=== PATIENT | female | born 1995 | race Caucasian/White ===

== ENCOUNTER 2017-02-02 15:44 | Emergency (ER) | payer OTHER ==
[~2017-02-02 15:44] MED LIST: PREN1CAP7 PO
--- NOTE | 2017-02-02 16:14 | PD ---
HPI Chief Complaint Lost Mucus Plug Date Seen: Feb 02, 2017 Travel History International Travel<30 Days: No Contact w/Intl Traveler<30Days: No History of Present Illness HPI Mrs. Matthews is a 21 y/o at 40/3 present to the [facility] with constant contractions and lost mucus plug. She states that she was checked at her [facility] appointment on Sunday and has had intermittent contractions since then. Today she states the contractions have been constant. She also states that earlier in the day she lost her mucus plug. She endorses good movement and lower ABD pressure. She denies any discharge, vaginal bleeding, or loss of fluid. Otherwise she has no complaints, denies a complete ROS, and states her has been uncomplicated thus far. Weeks Gestation: 40 Para: 0 : 1 Last Menstrual Period: Feb 02, 2017 History Past Medical History Narrative Medical Asthma - last used inhaler approximately 3 weeks ago, only uses rescue inhaler Medical History: Denies Significant Hx Obstetric History Obstetric History Past Surgical History Surgical History: No Previous Surgery Family History Family History: Negative Social History Alcohol Use: No Tobacco Use: No Substance Abuse: No Allergies-Medications (Allergen,Severity, Reaction): Uncoded Allergies: all cillins (Allergy, Severe, Anaphylaxis, 07/25/16) Home Meds Active Scripts W/O Vit A W/ Fe Fumar (Citranatal [place]) 27-1-260 Mg Cap, 1 CAP PO DAILY for Nutritional Supplement, #30 CAP 11 Refills Prov:Cheyenne Maxwell 10/18/16 W/O Vit A W/ Fe Fumar (Citranatal [place]) 27-1-260 Mg Cap Prov:Cheyenne MaxwellP 07/25/16 Review of Systems Except as stated in HPI: all other systems reviewed are Neg Physical Exam Narrative GENERAL: Well-nourished, well-developed patient. SKIN: Warm and dry. HEAD: Normocephalic and atraumatic. EYES: No scleral icterus. No injection or drainage. ENT: No nasal drainage noted. Mucous membranes pink. Airway patent. NECK: Supple, trachea midline. No JVD. CARDIOVASCULAR: Regular rate and rhythm without murmurs, gallops, or rubs. RESPIRATORY: Breath sounds equal bilaterally. No accessory muscle use. ABDOMEN/GI: Abdomen soft, non-tender, bowel sounds present, no rebound, no guarding Gravid to 40 weeks GENITOURINARY: External Genitalia: intact and normal in appearance Cervix: Posterior Dilatation: 1cm Effacement: 50% Station: -3 Membranes: Intact Uterine Contractions: Q7min FHT's: Category: 1 Baseline: 150s Reactive: Positive Variability: Moderate Decels: None EXTREMITIES: No cyanosis or edema. BACK: Nontender without obvious deformity. No CVA tenderness. NEUROLOGICAL: Awake and alert. Motor and sensory grossly within normal limits. Five out of 5 muscle strength in all muscle groups. Normal speech. Data Data Vital Signs Reviewed: Yes Group B Strep: Negative MDM Medical Record Reviewed: Yes Plan Mrs. Matthews is a 21 y/o at 40/3 present to the [facility] with constant contractions and lost mucus plug 1. IUP at 40 weeks -Continue routine antepartum care -Continue vitamin -Encourage oral hydration -FHT category 1, reassuring 2. Contractions -Patient manohar every 7 minutes -Cervical exam not consistent with labor -Pain medication offered, however patient declined Discharge: Patient to be discharged home in stable condition. Patient is scheduled for induction on Sunday. Labor precautions discussed. Patient agreeable to medical plan and all questions answered. SDW: Dr. Forman Diagnosis Diagnosis: Primary Impression: 40 weeks gestation of Additional Impression: Pelvic pain affecting Disposition: 01 DISCHARGE HOME Condition: Stable Patient Instructions: General Instructions, Having Your Baby: The Labor Process (GEN) Beni Leonard MD R2 Feb 02, 2017 16:14
== END 2017-02-02 17:13 | disposition home or self-care (01) ==
LOC: HOBED 15:44
DX: O26.893 Other specified pregnancy related conditions, third trimester (principal); R10.2 Pelvic and perineal pain; Z3A.40 40 weeks gestation of pregnancy
CPT/HCPCS: 59025

== ENCOUNTER 2017-02-06 10:38 | Inpatient (IN) | payer OTHER ==
[2017-02-06] VITALS (33 sets, daily range): BP systolic 112–151; BP diastolic 60–100; PULSE 69–122; RESP 18; TEMP 98.6
[~2017-02-06] VITALS: Ht 167.6 cm; Wt 104.0 kg
[2017-02-06] MEDS ORDERED: LACTATED RINGER'S 1000 ML INJ 1,000 ML IV PRN (11:46)
[2017-02-06] MEDS ORDERED: LACTATED RINGER'S 1000 ML INJ 1,000 ML IV SCH (11:46)
[2017-02-06] MEDS ORDERED: CITRIC ACID-SODIUM CITRATE LIQ 30 ML UDC PO SCH (12:00)
[2017-02-06] MEDS ORDERED: LIDOCAINE HCL 1% 50 ML VIAL I-DERMAL PRN (12:00)
[2017-02-06] MEDS ORDERED: SODIUM CHLORID 0.9% 500 ML INJ 500 ML IV PRN (12:00)
[2017-02-06] MEDS ORDERED: MINERAL OIL 10 ML VIAL TOPICAL PRN (12:00)
[2017-02-06] MEDS ORDERED: OXYTOCIN 30 UNITS-500ML PREMIX 500 ML IV SCH (12:00)
[2017-02-06] MEDS ORDERED: OXYTOCIN 30 UNITS-500ML PREMIX 500 ML IV ONE (12:00)
[2017-02-06] MEDS ORDERED: LIDOCAINE HCL 1% 50 ML VIAL INFIL PRN (12:00)
[2017-02-06] MEDS ORDERED: SODIUM CHLOR 0.9% 1000 ML INJ 1,000 ML IV PRN (12:06)
--- NOTE | 2017-02-06 12:08 | PD ---
HPI Chief Complaint induction of labor (Patrica Sen MD R1) Travel History International Travel<30 Days: No Contact w/Intl Traveler<30Days: No (Patrica Sen MD R1) History of Present Illness HPI Patient is a 21y/o @41 wks who presents for induction of labor. States she was referred by her doctor, who did not want her to deliver after this week, especially because of large fetus (estimated size 9lb 7oz). Endorses movement and contractions; denies vaginal bleeding or leakage of fluid. No abnormal labs or antepartum course. Denies changes in urination, vision disturbances, abdominal pain, or lower extremity swelling. (Patrica Sen MD R1) History Past Medical History Medical History: Denies Significant Hx (Patrica Sen MD) Obstetric History Obstetric History (Patrica Sen MD R1) Family History Family History: Negative (Patrica Sen MD) Social History Alcohol Use: No Tobacco Use: No Substance Abuse: No (Patrica Sen MD R1) Allergies-Medications (Allergen,Severity, Reaction): Uncoded Allergies: all cillins (Allergy, Severe, Anaphylaxis, 07/25/16) Home Meds Active Scripts W/O Vit A W/ Fe Fumar (Citranatal [place]) 27-1-260 Mg Cap, 1 CAP PO DAILY for Nutritional Supplement, #30 CAP 11 Refills Prov:Cheyenne Maxwell 10/18/16 W/O Vit A W/ Fe Fumar (Citranatal [place]) 27-1-260 Mg Cap Prov:Cheyenne Maxwell 07/25/16 Review of Systems Except as stated in HPI: all other systems reviewed are Neg (Patrica Sen MD R1) Physical Exam BP 124/77 Pulse 101 Narrative GENERAL: Well-nourished, well-developed patient. SKIN: Warm and dry. HEAD: Normocephalic and atraumatic. EYES: No scleral icterus. No injection or drainage. ENT: No nasal drainage noted. Mucous membranes pink. Airway patent. NECK: Supple, trachea midline. No JVD. CARDIOVASCULAR: Regular rate and rhythm without murmurs, gallops, or rubs. RESPIRATORY: Breath sounds equal bilaterally. No accessory muscle use. BREASTS: Bilateral exam showed no masses , no retractions, no nipple discharge. ABDOMEN/GI: Abdomen soft, non-tender, bowel sounds present, no rebound, no guarding Gravid to 41 weeks size GENITOURINARY: External Genitalia: intact and normal in appearance Cervix: anterior Dilatation: 1-2 cm Effacement: 80% Station: 0 Presentation: [-] Membranes: intact Uterine Contractions: present, q3 min FHT's: Category: 1 Baseline: 145 Variability: moderate Decels: none EXTREMITIES: No cyanosis or edema. BACK: Nontender without obvious deformity. No CVA tenderness. NEUROLOGICAL: Awake and alert. Motor and sensory grossly within normal limits. Five out of 5 muscle strength in all muscle groups. Normal speech. (Patrica Sen MD R1) Data Data Vital Signs Reviewed: Yes Orders Orders Admit To Inpatient (02/06/17 ) Code Status (02/06/17 11:46) Vital Signs (Adult) .Per protocol (02/06/17 11:46) Activity Oob Ad Myla (02/06/17 11:46) Heart (02/06/17 11:46) Amnioinfusion (02/06/17 11:46) Urinary Catheter Management .ONCE (02/06/17 11:46) Diet Liquid (02/06/17 Lunch) Lactated Ringer's 1000 Ml Inj (Lr 1000 M (02/06/17 11:46) Lactated Ringer's 1000 Ml Inj (Lr 1000 M (02/06/17 11:46) Sodium Chlorid 0.9% 500 Ml Inj (Ns 500 M (02/06/17 12:00) Sodium Chlor 0.9% 1000 Ml Inj (Ns 1000 M (02/06/17 12:06) Lidocaine 1% Inj (50 Ml) (Xylocaine 1% I (02/06/17 12:00) Citric Acid-Sodium Citrate Liq (Bicitra (02/06/17 12:00) Ondansetron Inj (Zofran Inj) (02/06/17 12:00) Fentanyl Inj (Fentanyl Inj) (02/06/17 12:00) Fentanyl Inj (Fentanyl Inj) (02/06/17 12:00) Complete Blood Count With Diff (02/06/17 11:46) Hold Clot (02/06/17 11:46) Abo/Rh Blood Type (02/06/17 11:46) Urinalysis - C+S If Indicated (02/06/17 11:46) Resp Oxygen Non Rebreathe Mask (02/06/17 ) ^ Epidural / Intrathecal Infus (02/06/17 11:46) Oxytocin 30 Units-500ml Premix (Pitocin (02/06/17 12:00) Lidocaine 1% Inj (50 Ml) (Xylocaine 1% I (02/06/17 12:00) Light Mineral Oil (Muri-Lube Oil) (02/06/17 12:00) Inpatient Certification (02/06/17 ) Specimen To Be Collected PRN (02/06/17 11:46) ^ Non Stress Test (02/06/17 11:51) Response To Medication .Post New Med Administration, Reaction (02/06/17 11:51) ^ Discontinue Medication (02/06/17 11:51) Oxytocin 30 Units-500ml Premix (Pitocin (02/06/17 12:00) Group B Strep: Negative (Patrica Sen MD R1) MDM Interpretation(s) This is a 21 y/o F who is @41 wks who is here for labor induction. NST is reactive, heart tracing is category 1, reassuring. Patient has Moran's score of 10, likely to have vaginal delivery with induction. Plan - hydration - induction with oxytocin - con't to monitor vitals and heart tracing - check for dilation every 2 hours (Patrica Sen MD R1) Attending Attestation The exam, history, and the medical decision-making described in the above note were completed with the assistance of the resident provider. I reviewed and agree with the findings presented. I attest that I had a [id number] encounter with the patient on the same day, and personally performed and documented my assessment and findings in the medical record. d/w pt and family at bedside process of induction. discussed with patient that baby feels large (9-9.5#). Plan for IOL/vaginal delivery but increased risk for given IOL and suspected large baby. all questions answered. (Clint Conway MD) Diagnosis Diagnosis: Primary Impression: Post term , 41 weeks Patrica Sen MD R1 Feb 06, 2017 12:08 Clint Conway MD Feb 06, 2017 12:47
[2017-02-06 12:17] LABS: AUTOMATED NEUTROPHIL # 10.9 TH/MM3 (1.8-7.7); BASOPHIL # 0.1 TH/MM3 (0-0.2); BASOPHIL % 0.4 % (0.0-2.0); EOSINOPHIL # 0.1 TH/MM3 (0-0.4); EOSINOPHIL % 0.4 % (0.0-4.0); HEMATOCRIT 34.2 % (35.0-46.0); HEMO FLAGS DIFF FINAL; LYMPH % 14.4 % (9.0-44.0); MEAN CELL VOLUME 71.8 FL (80.0-100.0); MEAN CORPUSCULAR HEMOGLOBIN 22.2 PG (27.0-34.0); MEAN CORPUSCULAR HGB CONC 30.9 % (32.0-36.0); MONO % 4.9 % (0.0-8.0); NEUT % 79.9 % (16.0-70.0); PLATELET COUNT 327 TH/MM3 (150-450); RED BLOOD COUNT 4.76 MIL/MM3 (4.00-5.30); RED CELL DISTRIBUTION WIDTH 16.1 % (11.6-17.2); WHITE BLOOD COUNT 13.6 TH/MM3 (4.0-11.0)
[2017-02-06 12:24] LABS: BACTERIA, URINE OCC /hpf; BLOOD, URINE NEG (NEG); COMMENT (UR) CULT NOT INDICATED; CULTURE IF INDICATED CULT NOT INDICATED; GLUCOSE,URINE NEG (NEG); HYALINE CAST, URINE 1 /lpf (RARE); KETONE, URINE NEG (NEG); NITRITE,URINE NEG (NEG); PH, URINE 6.5 (5.0-8.5); SQUAMOUS EPITHELIAL CELL URINE 5 /hpf (0-5); URINE COLOR LIGHT-YELLOW (YELLW/STRAW)
[2017-02-06] MEDS ORDERED: ONDANSETRON HCL 4 MG/2 ML VIAL IV PRN (13:00)
--- NOTE | 2017-02-06 14:33 | PD.LABORPN ---
Subjective Subjective Patient is latent phase, resting comfortably. Objective Objective Pelvic Exam: Cervix: Anterior Dilatation: 1 cm Effacement: 75% Station: 0 Presentation: Cephalic Membranes: Intact Uterine Contractions: q3min FHT's: Category: 1 Baseline: 145 Reactive: yes Variability: moderate Decels: none Weeks Gestation: 41 Gest Age Assessed Date: Feb 06, 2017 Gest Age Assessed Time: 11:30 Pt started active labor?: No Medical induction of labor?: Yes Medical induction start date: Feb 06, 2017 Medical induction start time: 12:00 Artificial rupture of membrane: No Assessment/Plan Assessment and Plan IUP @41 wks here for induction of labor - recieving oxytocin drip - con't current plan of care - recheck every 2-3 hours Patrica Sen MD R1 Feb 06, 2017 14:33
--- NOTE | 2017-02-06 18:08 | PD.LABORPN ---
Subjective Subjective Patient resting comfortably. Objective Objective Pelvic Exam: Cervix: mid-position Dilatation: 2-3 cm Effacement: 80% Station: -2 Presentation: cephalic Membranes: intact Uterine Contractions: q3 min FHT's: Category: 1 Baseline: 150 Reactive: yes Variability: mod Decels: none Weeks Gestation: 41 Gest Age Assessed Date: Feb 06, 2017 Gest Age Assessed Time: 11:30 Pt started active labor?: No Medical induction of labor?: Yes Medical induction start date: Feb 06, 2017 Medical induction start time: 12:00 Artificial rupture of membrane: No Assessment/Plan Assessment and Plan IUP @ 41 wks GBS-, contractions q3min - recheck in 2-3 hours - plan for amniotic rupture - expect vaginal delivery Patrica Delgadillo Dr., MD R1 Feb 06, 2017 18:08
--- NOTE | 2017-02-06 21:25 | PD.LABORPN ---
Subjective Subjective Lying in bed, moderate discomfort from contractions. No other complaints at this time. Objective Objective Pelvic Exam: Dilatation: 3-4 Effacement: 80% Station: -2 Presentation: vertex Membranes: ruptured artificially Uterine Contractions: q2-3 mins FHT's: Category 1 Baseline: 130-140's Reactive: yes Variability: moderate Decels: none Weeks Gestation: 41 Gest Age Assessed Date: Feb 06, 2017 Gest Age Assessed Time: 11:30 Pt started active labor?: No Medical induction of labor?: Yes Medical induction start date: Feb 06, 2017 Medical induction start time: 12:00 Artificial rupture of membrane: Yes Artificial ROM date: Feb 06, 2017 Artifical ROM time: 21:15 Assessment/Plan Assessment and Plan IUP @ 41 wks GBS-, contractions q2-3 mins - Artificial rupture of membranes at 21:15 - IUPC inserted - Plan for epidural - Pitocin at 18 millunits/min, monitor for tachysystole - Continuous monitoring - expect vaginal delivery Johnathan Obregon Dr., MD Feb 06, 2017 21:25
[2017-02-06] MEDS ORDERED: fentaNYL 2MCG-BUPIV 0.125% INJ 100 ML ONE (22:57)
[2017-02-07] VITALS (132 sets, daily range): BP systolic 85–136; BP diastolic 42–109; PULSE 70–139; RESP 18; TEMP 98.2–99
--- NOTE | 2017-02-07 00:42 | PD.LABORPN ---
Subjective Subjective Lying in bed comfortably. No complaints. Epidural in. Pitocin temporarily stopped. Objective Objective Pelvic Exam: Dilatation: 4 cm Effacement: 80% Station: 0 Presentation: vertex Membranes: artificially ruptured Uterine Contractions: q2min FHT's: Category: 1 Baseline: 120s-130s Reactive: yes Variability: moderate Decels: early Weeks Gestation: 41 Gest Age Assessed Date: Feb 06, 2017 Gest Age Assessed Time: 11:30 Pt started active labor?: No Medical induction of labor?: Yes Medical induction start date: Feb 06, 2017 Medical induction start time: 12:00 Artificial rupture of membrane: Yes Artificial ROM date: Feb 06, 2017 Artifical ROM time: 21:15 Assessment/Plan Assessment and Plan Patient resting comfortably * epidural now in place, pain well controlled * urinary catheter inserted * IUPC in place * Pitocin currently stopped, will restart at 4milliunits/min * continue monitoring * expect vaginal delivery Seen and examined with Halle Thompson MD R1 Feb 07, 2017 00:42
[2017-02-07] MEDS ORDERED: ePHEDrine/NS 25 MG/5 ML SYR ONE (01:04)
--- NOTE | 2017-02-07 05:31 | PD.LABORPN ---
Subjective Subjective Patient resting in bed comfortably. No complaints at this time. Objective Objective Pelvic Exam: Dilatation:5-6 cm Effacement: 80% Station: 0 Presentation: vertex Membranes: Artificially ruptured Uterine Contractions: q3-5 FHT's: Category: 1 Baseline: 140s Reactive: yes Variability: moderate Decels: early, 1 late Weeks Gestation: 41 Gest Age Assessed Date: Feb 06, 2017 Gest Age Assessed Time: 11:30 Pt started active labor?: No Medical induction of labor?: Yes Medical induction start date: Feb 06, 2017 Medical induction start time: 12:00 Artificial rupture of membrane: Yes Artificial ROM date: Feb 06, 2017 Artifical ROM time: 21:15 Assessment/Plan Assessment and Plan Patient resting comfortably * epidural in place, pain well controlled * urinary catheter in place * IUPC in place * Pitocin 10milliunits/min * continue monitoring * expect vaginal delivery Halle Ulrich MD R1 Feb 07, 2017 05:31
[2017-02-07] MEDS ORDERED: NO SYSTEM NARCOTICS PRN (07:45)
[2017-02-07] MEDS ORDERED: DO NOT ADMINISTER ANTICOAGULANTS PRN (07:45)
[2017-02-07] MEDS ORDERED: fentaNYL 2MCG-BUPIV 0.125% 100 ML EPIDURAL SCH (07:45)
[2017-02-07] MEDS ORDERED: ePHEDrine/NS 25 MG/5 ML SYR IV PRN (07:45)
[2017-02-07] MEDS ORDERED: AMMONIA AROMATIC INHALANT 0.33 ML ONE (07:59)
--- NOTE | 2017-02-07 09:55 | PD.LABORPN ---
Subjective Subjective Pt resting comfortably on side. No complaints at this time. No pain. Objective Objective Pelvic Exam: Cervix: soft Dilatation: 6-7 Effacement: 80 Station: 0 Presentation: vertex Membranes: AROM Uterine Contractions: q3 minutes FHT's: Category: 1 Baseline: 140 Reactive: Yes Variability:moderate Decels: none Weeks Gestation: 41 Gest Age Assessed Date: Feb 06, 2017 Gest Age Assessed Time: 11:30 Pt started active labor?: No Medical induction of labor?: Yes Medical induction start date: Feb 06, 2017 Medical induction start time: 12:00 Artificial rupture of membrane: Yes Artificial ROM date: Feb 06, 2017 Artifical ROM time: 21:15 Assessment/Plan Assessment and Plan 21 y/o G1 at 41/1 in active labor -Continue pitocin -Epidural in place -IUPC -Continuous FHT -Plan for vaginal delivery Raphael Pretson MD, R2 Feb 07, 2017 09:55
[2017-02-07] MEDS ORDERED: MISOPROSTOL 200 MCG TAB ONE (11:40)
[2017-02-07] MEDS ORDERED: METHYLERGONOVINE MALEATE 0.2 MG/ML VIAL ONE (11:40)
[2017-02-07] MEDS ORDERED: CARBOPROST TROMETHAMINE 250 MCG/ML VIAL ONE (11:41)
--- NOTE | 2017-02-07 15:44 | PD.OB.DELI ---
Weeks gestation: 41 Gest age assessed date: Feb 06, 2017 Gest age assessed time: 11:30 Pt started active labor?: No Medical induction of labor?: Yes Medical induction start date: Feb 06, 2017 Medical induction start time: 12:00 Artificial rupture of membrane: Yes Artificial ROM date: Feb 06, 2017 Artifical ROM time: 21:15 Anesthesia: Epidural Episiotomy: Midline Vaginal Delivery: Vacuum, Spontaneous Presentation: Occiput anterior Nuchal Cord: None Delayed cord clamping (45 sec): No Infant: Female Delivery date: Feb 07, 2017 Delivery time: 15:10 One Minute : 8 Five Minute : 9 Weight: 3865 g Placenta: Spontaneous delivery, Intact, 3 vessel cord Laceration: Episiotomy, 2 deg Repair: Chromic running Estimated blood loss: 250ml Additional Information Midline episiotomy performed, Patient failed surgical vaginal delivery with 3 vacuum pop-offs. Then, perineal pressure applied from posterior to anterior during valsalva, which then facilitated delivery. 2nd degree episiotomy repaired with running 2-[address] Dickson Preston,Raphael Velez MD, R2 Feb 07, 2017 15:44
[2017-02-07] MEDS ORDERED: DOCUSATE SODIUM 50 MG/SENNA 8.6 MG TAB PO PRN (15:45)
[2017-02-07] MEDS ORDERED: oxyCODONE/ACETAMINOPHEN 5 MG/325 MG TAB PO PRN (15:45)
[2017-02-07] MEDS ORDERED: OXYTOCIN 30 UNITS-500ML PREMIX 500 ML IV SCH (15:45)
[2017-02-07] MEDS ORDERED: ALUMINUM/MAGNESIUM/SIMETH 30 ML CUP PO PRN (15:45)
[2017-02-07] MEDS ORDERED: ZOLPIDEM TARTRATE 5 MG TAB PO PRN (15:45)
[2017-02-07] MEDS ORDERED: ONDANSETRON ODT 4 MG TAB PO PRN (15:45)
[2017-02-07] MEDS ORDERED: SODIUM CHLORIDE 0.9% FLUSH 10 ML FLUSH IV FLUSH PRN (15:45)
[2017-02-07] MEDS ORDERED: ACETAMINOPHEN 325 MG TAB PO PRN (15:45)
[2017-02-07] MEDS ORDERED: MEASLES, MUMPS, RUBELLA VACCINE 0.5 ML VIAL SQ ONE (16:00)
[2017-02-07] MEDS ORDERED: DIPHTH/TETANUS/ACEL PERTUSSIS (BOOSTER) 0.5 ML VIAL/PFS IM ONE (16:00)
[2017-02-07] MEDS: IBUPROFEN 600 MG TAB PO PRN ×2 (17:23→22:55)
[2017-02-07] MEDS: BENZOCAINE 20% TOPICAL SPRAY 60 ML CAN TOPICAL PRN (17:24)
[2017-02-07] MEDS: WITCH HAZEL 50%/GLYCERIN 12.5% 40 PAD JAR TOPICAL PRN (17:24)
[2017-02-07] MEDS ORDERED: SODIUM CHLORIDE 0.9% FLUSH 10 ML FLUSH IV FLUSH SCH (21:00)
[2017-02-08] MEDS: oxyCODONE/ACETAMINOPHEN 5 MG/325 MG TAB PO PRN ×4 (03:00→20:39)
[2017-02-08] MEDS: IBUPROFEN 600 MG TAB PO PRN ×3 (06:05→20:38)
--- NOTE | 2017-02-08 08:56 | HHI.OB ---
Subjective Post Day: 1 Remarks day #1. AFVSS overnight. Pain minimal. Decreased lochia. Denies dysuria. She is feeding the baby via breast. Appetite good. No nausea or vomiting. Passing flatus. Had one bowel movement. Ambulating well. Denies calf pain. Had an episode of shortness of breath while lying down, has a cough that exacerbates it. Improved with inhaler. Patient has a history of asthma. Otherwise, she is doing well this morning and has no other complaints. Objective Objective Remarks GENERAL: Well-nourished, well-developed patient. CARDIOVASCULAR: Regular rate and rhythm without murmurs, gallops, or rubs. RESPIRATORY: Breath sounds equal bilaterally. No accessory muscle use. ABDOMEN/GI: Abdomen soft, non-tender. Fundus: Firm, non-tender at umbilicus. GENITOURINARY: Light to moderate bleeding. EXTREMITIES: No cyanosis or edema, non-tender, without signs of DVT. Medications and IVs Current Medications Medications (Trade) Dose Ordered Sig/Joe Route Start Time Stop Time Status Last Admin Lactated Ringer's 1,000 ml @ 125 mls/hr Q8H IV 02/06/17 11:46 02/06/17 12:59 Lactated Ringer's 1,000 ml @ 3,000 mls/hr Q20M PRN IV 02/06/17 11:46 Sodium Chloride 1,000 ml @ 100 mls/hr Q10H PRN IV 02/06/17 12:06 (Xylocaine 1% Inj (50 ml)) 0.1 ml UNSCH X1 PRN I-DERMAL 02/06/17 12:00 02/09/17 11:59 (Bicitra Liq) 30 ml PENSION EXAMINER PO 02/06/17 12:00 02/10/17 11:59 (Zofran Inj) 4 mg Q6H PRN IV 02/06/17 13:00 (fentaNYL INJ) 50 mcg Q1H PRN IV PUSH 02/06/17 12:00 (fentaNYL INJ) 100 mcg Q1H PRN IV PUSH 02/06/17 12:00 02/06/17 21:39 (Xylocaine 1% Inj (50 ml)) 10 ml UNSCH X1 PRN INFIL 02/06/17 12:00 02/08/17 11:59 (Muri-Lube Oil) 10 ml UNSCH PRN TOPICAL 02/06/17 12:00 Oxytocin 500 ml @ 0 mls/hr TITRATE IV 02/06/17 12:00 02/06/17 12:59 Fentanyl/ Bupivacaine HCl 100 ml @ 12 mls/hr TITRATE EPIDURAL 02/07/17 07:45 (NS Flush) 2 ml BID IV FLUSH 02/07/17 21:00 (NS Flush) 2 ml UNSCH PRN IV FLUSH 02/07/17 15:45 (Tylenol) 650 mg Q4H PRN PO 02/07/17 15:45 (Motrin) 600 mg Q6H PRN PO 02/07/17 15:45 02/08/17 06:05 (Percocet 5-325 Mg) 1 tab Q4H PRN PO 02/07/17 15:45 02/08/17 03:00 (Percocet 5-325 Mg) 2 tab Q4H PRN PO 02/07/17 15:45 (Americaine 20% Top Spr) 1 spray Q4H PRN TOPICAL 02/07/17 15:45 02/07/17 17:24 (Tucks Pads) 1 applic QID PRN TOPICAL 02/07/17 15:45 02/07/17 17:24 (Diana-Colace) 2 tab Q12H PRN PO 02/07/17 15:45 (Ambien) 5 mg HS PRN PO 02/07/17 15:45 (Mag-Al Plus Susp Liq) 15 ml Q8H PRN PO 02/07/17 15:45 (Zofran Odt) 4 mg Q6H PRN PO 02/07/17 15:45 Assessment/Plan Assessment and Plan 21-year-old who is PPD#1 s/p . -Continue routine care. -Percocet and Motrin PRN pain. -Encouraged OOB. Advised pelvic rest for 6 wks. -Will need a f/u appt. within 6 wks. -Re: ctrl, she would like OCPs -Provide albuterol nebulizer when necessary for shortness of breath -D/c tomorrow wdw Patrica Elizabeth MD R1 Feb 08, 2017 08:56
[2017-02-08] MEDS ORDERED: RESP: ALBUTEROL 0.63 MG/3 ML NEB (PRN) NEB (09:15)
[2017-02-08] MEDS: BENZOCAINE 20% TOPICAL SPRAY 60 ML CAN TOPICAL PRN (20:38)
[2017-02-08] MEDS: WITCH HAZEL 50%/GLYCERIN 12.5% 40 PAD JAR TOPICAL PRN (20:38)
[2017-02-09] MEDS: IBUPROFEN 600 MG TAB PO PRN ×2 (03:18→10:24)
[2017-02-09] MEDS: oxyCODONE/ACETAMINOPHEN 5 MG/325 MG TAB PO PRN ×2 (03:19→10:25)
[2017-02-09] MEDS ORDERED: SENN1TAB PO (08:10)
[2017-02-09] MEDS ORDERED: IBUP-232 PO (08:10)
--- NOTE | 2017-02-09 08:11 | HHI.DCPOC ---
Discharge Care Plan Diagnosis: (1) care following vaginal delivery Report Symptoms to Your Doctor -Temperature above 100.5 degrees -Redness, of incision or excessive or foul smelling drainage -Unusual pain or calf pain -Increased vaginal bleeding -Painful or difficulty urinating -Feelings of extreme sadness or anxiety after 2 weeks Goals to Promote Your Health * To prevent worsening of your condition and complications * To maintain your health at the optimal level Directions to Meet Your Goals Take your medications as prescribed Follow your dietary instruction Follow activity as directed Ensure plenty of rest for recovery Drink fluids for hydration Keep your appointments as scheduled Take your immunizations and boosters as scheduled If your symptoms worsen call your PCP, if no PCP go to Urgent Care Center or Emergency Room Smoking is Dangerous to Your Health. Avoid second hand smoke Call the 24-hour crisis hotline for domestic abuse at Rapheal Preston MD, R2 Feb 09, 2017 08:11
--- NOTE | 2017-02-09 10:31 | HHI.OB ---
Subjective Post Day: 2 Remarks day #2. AFVSS overnight. Pain minimal. Decreased lochia. Denies dysuria. No breast tenderness. She is feeding the baby via breast/bottle. Appetite good. No nausea or vomiting. Endorses flatus. No bowel movement. Ambulating well. Denies calf pain, shortness of breath, or cough. Otherwise, she is doing well this morning and has no other complaints. Objective Objective Remarks GENERAL: Well-nourished, well-developed patient. CARDIOVASCULAR: Regular rate and rhythm without murmurs, gallops, or rubs. RESPIRATORY: Breath sounds equal bilaterally. No accessory muscle use. ABDOMEN/GI: Abdomen soft, non-tender. Fundus: Firm, non-tender at umbilicus. GENITOURINARY: Light to moderate bleeding. EXTREMITIES: No cyanosis or edema, non-tender, without signs of DVT. Medications and IVs Current Medications Medications (Trade) Dose Ordered Sig/Joe Route Start Time Stop Time Status Last Admin Lactated Ringer's 1,000 ml @ 125 mls/hr Q8H IV 02/06/17 11:46 02/06/17 12:59 Lactated Ringer's 1,000 ml @ 3,000 mls/hr Q20M PRN IV 02/06/17 11:46 Sodium Chloride 1,000 ml @ 100 mls/hr Q10H PRN IV 02/06/17 12:06 (Xylocaine 1% Inj (50 ml)) 0.1 ml UNSCH X1 PRN I-DERMAL 02/06/17 12:00 02/09/17 11:59 (Bicitra Liq) 30 ml ALARM INSTALLATION TECHNICIAN PO 02/06/17 12:00 02/10/17 11:59 (Zofran Inj) 4 mg Q6H PRN IV 02/06/17 13:00 (fentaNYL INJ) 50 mcg Q1H PRN IV PUSH 02/06/17 12:00 (fentaNYL INJ) 100 mcg Q1H PRN IV PUSH 02/06/17 12:00 02/06/17 21:39 (Muri-Lube Oil) 10 ml UNSCH PRN TOPICAL 02/06/17 12:00 Oxytocin 500 ml @ 0 mls/hr TITRATE IV 02/06/17 12:00 02/06/17 12:59 Fentanyl/ Bupivacaine HCl 100 ml @ 12 mls/hr TITRATE EPIDURAL 02/07/17 07:45 (NS Flush) 2 ml BID IV FLUSH 02/07/17 21:00 (NS Flush) 2 ml UNSCH PRN IV FLUSH 02/07/17 15:45 (Tylenol) 650 mg Q4H PRN PO 02/07/17 15:45 (Motrin) 600 mg Q6H PRN PO 02/07/17 15:45 02/09/17 10:24 (Percocet 5-325 Mg) 1 tab Q4H PRN PO 02/07/17 15:45 02/09/17 10:25 (Percocet 5-325 Mg) 2 tab Q4H PRN PO 02/07/17 15:45 (Americaine 20% Top Spr) 1 spray Q4H PRN TOPICAL 02/07/17 15:45 02/08/17 20:38 (Tucks Pads) 1 applic QID PRN TOPICAL 02/07/17 15:45 02/08/17 20:38 (Diana-Colace) 2 tab Q12H PRN PO 02/07/17 15:45 02/08/17 17:06 (Ambien) 5 mg HS PRN PO 02/07/17 15:45 (Mag-Al Plus Susp Liq) 15 ml Q8H PRN PO 02/07/17 15:45 (Zofran Odt) 4 mg Q6H PRN PO 02/07/17 15:45 (Albuterol Neb) 0.63 mg Q4HR NEB PRN NEB 02/08/17 09:15 Assessment/Plan Assessment and Plan 21-year-old who is PPD#2 s/p . -Continue routine care. -Percocet and Motrin PRN pain. -Encouraged OOB. Advised pelvic rest for 6 wks. -Will need a f/u appt. within 6 wks. -Re: ctrl, she would like OCPs -Albuterol nebulizer when necessary for shortness of breath -D/c today Raphael Preston MD, R2 Feb 09, 2017 10:31
== END 2017-02-09 14:33 | disposition home or self-care (01) | DRG 775 ==
LOC: H2EA 10:38 → H1EA 02-07 18:17
PROVIDERS: ADMIT Obstetrics & Gynecology; ATTEND Obstetrics & Gynecology
PROC: 3E033VJ Introduction of Other Hormone into Peripheral Vein, Percutaneous Approach (ICD-10-PCS; 2017-02-06)
PROC: 10907ZC Drainage of Amniotic Fluid, Therapeutic from Products of Conception, Via Natural or Artificial Opening (ICD-10-PCS; 2017-02-06)
PROC: 10H07YZ Insertion of Other Device into Products of Conception, Via Natural or Artificial Opening (ICD-10-PCS; 2017-02-06)
PROC: 10D07Z6 Extraction of Products of Conception, Vacuum, Via Natural or Artificial Opening (ICD-10-PCS; principal; 2017-02-07)
PROC: 0KQM0ZZ Repair Perineum Muscle, Open Approach (ICD-10-PCS; 2017-02-07)
PROC: 0W8NXZZ Division of Female Perineum, External Approach (ICD-10-PCS; 2017-02-07)
DX: O48.0 Post-term pregnancy (principal); J45.909 Unspecified asthma, uncomplicated; O70.1 Second degree perineal laceration during delivery; Z3A.41 41 weeks gestation of pregnancy; Z37.0 Single live birth; O99.52 Diseases of the respiratory system complicating childbirth
CPT/HCPCS: 59025; 81001; 85025; 86900; 86901; 90707; 90715; J2210; J2590; J3010; J7120

== ENCOUNTER 2017-11-05 11:34 | Emergency (ER) | payer OTHER ==
[~2017-11-05] VITALS: Ht 167.6 cm; Wt 100.0 kg
[~2017-11-05 11:34] MED LIST changes: +ORSYTAB PO; -PREN1CAP7 PO
[2017-11-05 11:44] VITALS: BP 135/69; PULSE 90; RESP 16; TEMP 98.7; O2SAT 99
[2017-11-05] MEDS ORDERED: AZIT250T3 PO (12:50)
--- NOTE | 2017-11-05 12:52 | PD ---
HPI Chief Complaint: ENT Complaint Time Seen by Provider: 12:11 Travel History International Travel<30 days: No Contact w/Intl Traveler<30days: No Traveled to known affect area: No History of Present Illness HPI 22-year-old female with sore throat and fever 3 days. Reports pain with swallowing. Denies difficulty eating, drinking or swallowing secretions. Symptom severity is moderate. She reports similar symptoms in the past for strep throat. Pain is aggravated by swallowing and slightly improved with Tylenol. PFSH Past Medical History Medical History: Denies Significant Hx Tetanus Vaccination: < 5 Years Influenza Vaccination: Yes ?: Not LMP: 10/31/17 Past Surgical History Surgical History: No Previous Surgery Social History Alcohol Use: No Tobacco Use: No Substance Use: No Allergies-Medications (Allergen,Severity, Reaction): Coded Allergies: amoxicillin (Verified Allergy, Severe, Anaphylaxis, 11/05/17) Uncoded Allergies: all cillins (Allergy, Severe, Anaphylaxis, 07/25/16) Reported Meds & Prescriptions Reported Meds & Active Scripts Active Orsythia (Levonorgestrel-Ethinyl Estradiol) 0.1-20 mg-mcg Tab 1 Tab PO DAILY Review of Systems Except as stated in HPI: all other systems reviewed are Neg General / Constitutional: No: Fever Eyes: No: Visual changes HENT: Positive: Sore Throat, No: Headaches Cardiovascular: No: Chest Pain or Discomfort Respiratory: No: Shortness of Breath Gastrointestinal: No: Abdominal Pain Genitourinary: No: Dysuria Physical Exam Narrative GENERAL: Alert and well-appearing 22-year-old female SKIN: Warm and dry. No rash HEAD: Normocephalic. EYES: No injection or drainage. ENT: Notable pharyngeal erythema with mild tonsillar hypertrophy and scant exudate. Uvula is midline. Airways patent. Normal phonation. Mucous members are moist. NECK: Supple, trachea midline. Mild anterior cervical lymphadenopathy CARDIOVASCULAR: Regular rate and rhythm without murmurs, gallops, or rubs. RESPIRATORY: Breath sounds equal bilaterally. No accessory muscle use. GASTROINTESTINAL: Abdomen soft, non-tender, nondistended. MUSCULOSKELETAL: No cyanosis, or edema. Data Data Last Documented VS Vital Signs Date Time Temp Pulse Resp B/P (MAP) Pulse Ox O2 Delivery O2 Flow Rate FiO2 11/05/17 11:45 16 11/05/17 11:44 98.7 90 135/69 (91) 99 [facility] Medical Decision Making Medical Screen Exam Complete: Yes Emergency Medical Condition: Yes Differential Diagnosis Strep pharyngitis, viral pharyngitis, mononucleosis Narrative Course 22-year-old female here with exudative tonsillitis. She is well-appearing. She is allergic to penicillins. She will be prescribed azithromycin. Diagnosis Primary Impression: Pharyngitis Qualified Codes: J02.9 - Acute pharyngitis, unspecified Referrals: Primary Care Physician Departure Forms: Tests/Procedures, Work Release Enter return to work date: Nov 07, 2017 Additional Instructions: Tylenol and ibuprofen as needed for fever and pain. Antibiotics as directed. Drink plenty fluid. Follow-up with the primary doctor. Scripts Azithromycin (Azithromycin) 250 Mg Tab 250 MG PO DIRECTED for Infection, #6 TAB 0 Refills Take 2 tabs (500 mg) on day 1 then 1 tab daily x 4 days. Prov: Viry Delgadillo 11/05/17 Disposition: 01 DISCHARGE HOME Condition: Stable Viry Delgadillo Nov 05, 2017 12:52
== END 2017-11-05 13:03 | disposition home or self-care (01) ==
LOC: PHEFT 11:34
DX: J02.9 Acute pharyngitis, unspecified (principal); R50.9 Fever, unspecified; Z88.0 Allergy status to penicillin
CPT/HCPCS: 99283